=== PATIENT | female | born 1990 | race Caucasian/White ===

== ENCOUNTER 2016-04-12 21:19 | Inpatient (IN) | payer OTHER ==
[~2016-04-12] VITALS: Ht 172.7 cm; Wt 135.6 kg
[2016-04-12 22:13] LABS: ABSOLUTE BASOPHIL COUNT 0 /CUMM (0.0-0.2); ABSOLUTE EOSINOPHIL COUNT 0 /CUMM (0.0-0.7); ABSOLUTE GRANULOCYTE CT 8.8 /CUMM (1.4-6.5); ABSOLUTE LYMPH COUNT 2.9 /CUMM (1.2-3.4); ABSOLUTE MONOCYTE COUNT 0.9 /CUMM (0.10-0.60); BASOPHIL % 0.2 % (0.0-2.0); EOSINOPHIL % 0.3 % (0-5); GRANULOCYTE % 69.2 % (42.2-75.2); HEMATOCRIT 36.4 % (37-47); MEAN CORPUSCULAR HGB 28.1 PG (27.0-31.0); MEAN CORPUSCULAR HGB CONC 32.7 G/DL (33.0-37.0); MEAN PLATELET VOLUME 8.9 FL (7.4-10.4); PLATELET COUNT 306 /CUMM (130-400); RBC DISTRIBUTION WIDTH 14.1 % (11.5-14.5); RED BLOOD CELL CT 4.23 /CUMM (4.20-5.40); WHITE BLOOD CELL COUNT 12.7 /CUMM (4.8-10.8)
--- NOTE | 2016-04-12 22:26 | History & Physical ---
General Information and HPI MD Statement: I have seen and personally examined LUCY CARVER and documented this H&P. The patient is a 25 year old female at [39] weeks and [4] days gestation who presented with a chief complaint of [LOF]. Source of Information: patient Exam Limitations: no limitations History of Present Illness: 25yo, 39 4/7wks, c/o LOF since 8pm tonight, denies ctxs or vaginal bleeding, reports +FM.amnisure positive. care started at 8+ wks, initial BMI 41, elevated 1 hr GCT 171, 3hr GTT73/237/152/111, GBS positive. EFW 7lb2oz at 38wks 3days. 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 Home Who Do You Live With? spouse Primary Language: Irish Smoking Status: Never Smoked ETOH Use: denies use Illicit Drug Use: denies illicit drug use Living Will? unknown Review of Systems Review of Systems Constitutional: Reports: no symptoms. EENTM: Reports: no symptoms. Cardiovascular: Reports: no symptoms. Respiratory: Reports: no symptoms. GI: Reports: no symptoms. Genitourinary: Reports: see HPI. Musculoskeletal: Reports: no symptoms. Skin: Reports: no symptoms. Neurological/Psychological: Reports: no symptoms, unable to move lower ext, unable to move upper ext, weakness, other. Hematologic/Endocrine: Reports: no symptoms. Immunologic/Allergic: Reports: no symptoms. All Other Systems: Reviewed and Negative Date of LMP: 07/10/15 Post Menopausal: No Exam & Diagnostic Data Obstetric Exam Wgt Gained During : 58lb Pelvimetry: adequate Dilation (cm): 1 Effacement (%): 30 Station: -3 Membranes: SROM Fluid: clear Fundal Height (cm): 39 Multiple Gestation? No Contractions: occasional Infant #1 - FHR Baseline: 130 Category: 1 Estimated Weight: 7lb2oz Presentation: vertex Patient for Induction? No Physical Exam: VSS General : NAD abdomen: gravid, soft, nontender ext:DCT (-) Labs Blood Type & Rh: O positive Antibody Screen: negative Hct/Hgb & Platelets #1: 13.5/43%,[id number] Hct/Hgb & Platelets #2: 12/38.5%,[id number] Rubella: immune VDRL #1: negative VDRL #2: negative HbsAg: negative HIV #1: negative HIV #2 negative 1 Hr P 3 Hr P/237/152/111 Group B Strep: positive Initial Ultrasound: IUP at 8wks 2 days Anatomy Ultrasound: normal Ultrasound for EFW: 7lb2oz at 38wks 3 days Genetic Testing: normal Last 24 Hrs of Labs/Gopal: Laboratory Tests 04/12/16 2200: CBC w Diff NO MAN DIFF REQ, RBC 4.23, MCV 86.0, MCH 28.1, RDW 14.1, MPV 8.9, Gran % 69.2, Lymphocytes % 22.9, Monocytes % 7.4, Eosinophils % 0.3, Basophils % 0.2, Absolute Granulocytes 8.8 H, Absolute Lymphocytes 2.9, Absolute Monocytes 0.9 H, Absolute Eosinophils 0, Absolute Basophils 0, PUBS MCHC 32.7 L 04/12/165: Urine Color STRAW, Urine Clarity CLEAR, Urine pH 6.0, Ur Specific [place] <= 1.005, Urine Protein NEG, Urine Ketones NEG, Urine Nitrite NEG, Urine Bilirubin NEG, Urine Urobilinogen 0.2, Ur Leukocyte Esterase NEG, Ur Microscopic SEDIMENT EXAMINED, Urine RBC FEW H, Urine WBC RARE, Ur Epithelial Cells FEW, Urine Hemoglobin MOD H, Urine Glucose 250 H Assessment/Plan Assessment/Plan: 25yo, 39 4/7wks SROM 1. admit pt, admission labs 2. antibiotics for GBS prophylaxis 3. may consider IOL if no spontaneouse onset of labor 4. will monitor closely As Ranked By This Provider Problem List: 1. 2. SROM (spontaneous rupture of membranes) Core Measures/Miscellaneous Venous Thromboembolism VTE Risk Factors: / VTE Contraindications: No Contraindications VTE Prophylaxis Ordered Inpt: Early Ambulation VTE Diagnosis: No Beta Jose C Is Beta Jose C a Home Med? No Antibiotics Is Patient on Antibiotics? No Attending MD Review Statement Attending Statement Attending MD Statement: examined this patient, discussed with family, discussed w/nursing
--- NOTE | 2016-04-13 09:45 | PN- OBGYN ---
Surgical Brief Attending Note Brief Attending Note: Patient is status post SROM from yesterday evening. She was rested overnight. She is awake this morning. Patient is afebrile with normal vital signs. She's currently without any significant discomfort. She is aware of some very mild contractions. heart rate is category 1 Baseline 140s. Contractions are regular every 3- 6 minutes. Vaginal exam shows her cervix to be 3 cm 70% effaced posterior -2. Assessment SROM at term in a primipara with some irregular contractions plan is IV Pitocin We'll continue the antibiotic protocol for group B strep Joelle Jones ending dictation
--- NOTE | 2016-04-13 20:31 | Labor & Delivery Summary ---
Delivery Summary Vaginal Delivery: Vaginal: SPONTANEOUS VERTEX Episiotomy/Lacerations: Episiotomy/Lacerations: LACERATION Type: 1ST DEGREE Repair: 3 0 VICRYL Anesthesia: EPIDURAL / LOCAL Placenta: Placenta: spontanteous, normal, 3 vessel, NUCHAL CORD X 1 TRAILING MEMBRANES - RETAINED MEMBRANNE FRAGMENT - UTERINE CURETTAGE Anesthesia: EPIDURAL Cord PH Value: 7.30 Baby's Weight: FEMALE: 7# 7oz Apgars - 1 Min: 8 Apgars - 5 Min: 9 Additional Comments: Patient was admitted after SROM of clear fluid. SROM occurred on 04/12/2016 at 20:00. Due to positive maternal culture for group B beta strep patient was begun on the IV penicillin prophylaxis protocol. Patient rested overnight and then the following morning was started with IV Pitocin induction. Cervix was 2.5 cm's very posterior -70% effaced. As patient became more uncomfortable in the early afternoon she received an epidural. After placement of the epidural she was 5-6 cm's. Unfortunately after placement of the epidural she had overall poor epidural coverage on her left hand side that did not improve despite multiple epidural boluses. When patient was 8 cm there was a question as to whether to replace her epidural or just to go with some IV Stadol. Patient declined having another attempt of a second epidural to be placed and chose IV Stadol 1. Patient had increasing rectal pressure, reexamination showed her now to be anterior lip which she was easily able to push away so she became fully dilated at 19:01, on 04/13/2016. heart rate baseline remained 130s with mild to moderate variable decelerations on every 2-3 contractions. The variables would go to the 80-90 range with last less than 45 seconds with good recovery. Excellent variability. Once patient was noted to be fully her temperature was rechecked it was 100.7 so she was given 1 dose of IV acetaminophen. (Patient was continuing with the penicillin protocol for group B strep.). Patient was excellent was pushing and at 19:23 had a normal vaginal delivery of a live viable female infant. With delivery of the head there was evidence of meconium staining, which was not present during examinations in labor. Nuchal cord 1 was easily reduced. There was no difficulty with delivering the shoulders. Baby was vigorous at delivery cord was doubly clamped and cut and the baby was able to have skin to skin immediately with the mother. Cord pH was obtained which showed a normal value of 7.30. Following delivery the baby we had active management of third stage of labor with IV Pitocin. Placenta spontaneously delivered at 19:28 with evidence of trailing membranes. Following delivery of the placenta there was evidence of focal low segment uterine atony which responded to uterine massage cleaning the low segment out manually of blood clot IV Pitocin and IM Methergine. With manual removal of clots from the low segment there is suggestion of retained membrane fragments in the uterine fundal area so uterine curettage was performed. A Hamzah curette was easily passed of through the cervical opening into the uterine cavity patient tolerated the curettage quite easily a small 2 cm fragment of membrane was removed at that time. From that point onward we had good hemostasis from the uterus and cervix. Inspection of the perineum showed a right periurethral small laceration without any bleeding. There was a first-degree small laceration right at the introitus at 5:00 which required a single suture utilizing local anesthetic with bupivacaine. At completion the delivery of the baby and the placenta and repair of the perineum there was normal lochia noted Sponge needle and spent counseling were correct 2. Rh+, immune
[2016-04-14 09:14] LABS: ABSOLUTE BASOPHIL COUNT 0 /CUMM (0.0-0.2); ABSOLUTE EOSINOPHIL COUNT 0 /CUMM (0.0-0.7); ABSOLUTE GRANULOCYTE CT 12.3 /CUMM (1.4-6.5); ABSOLUTE MONOCYTE COUNT 1.1 /CUMM (0.10-0.60); BASOPHIL % 0.2 % (0.0-2.0); EOSINOPHIL % 0.1 % (0-5); GRANULOCYTE % 74.6 % (42.2-75.2); HEMATOCRIT 34.6 % (37-47); MEAN CORPUSCULAR HGB 28.1 PG (27.0-31.0); MEAN CORPUSCULAR HGB CONC 32.7 G/DL (33.0-37.0); MEAN CORPUSCULAR VOLUME 85.9 FL (81.0-99.0); PLATELET COUNT 304 /CUMM (130-400); RBC DISTRIBUTION WIDTH 14.4 % (11.5-14.5); RED BLOOD CELL CT 4.03 /CUMM (4.20-5.40); WHITE BLOOD CELL COUNT 16.5 /CUMM (4.8-10.8)
[2016-04-14] MEDS ORDERED: IBUPROFEN800 M1 PO (09:56)
--- NOTE | 2016-04-14 12:28 | PN- Post Delivery/GYN ---
Subjective Subjective: Sitting up in her bed, looking refreshed and healthy. Happy with her vaginal delivery Review of Systems: Currently negative for cardiac pulmonary GI complaints Objective Last 24 Hrs of Vital Signs/I&O MAXIMUM TEMPERATURE in labor 100.7, temp following delivery have all been in the range of 98.0-99.1. Pulse 80s respirations 16 blood pressure 122/78 pulse ox 99% room air Vital Signs Date Time Temp Pulse Resp B/P Pulse O2 O2 Flow FiO2 Ox Delivery Rate 04/13 2006 100.4 04/13 1906 100.7 Physical Exam General Appearance Alert, Oriented X3, Cooperative, No Acute Distress Skin No Rashes, No Breakdown Cardiovascular Regular Rate Lungs Normal Air Movement Abdomen Normal Bowel Sounds, Soft, No Tenderness, No Hepatospenomegaly, uterus is firm nontender midline 2 fingerbreadths below the umbilicus. Neurological Normal Gait, Normal Speech Extremities No Tenderness/Swelling Reproductive (FEMALE) Normal female genitalia, average lochia Current Medications: Current Medications Sig/Ritu Start time Last Medication Dose Route Stop Time Status Admin Acetaminophen 1,000 MG ONCE ONE 04/13 1914 DC 04/13 N/A 1 UNIT IV 04/13 1928 1907 Bupivacaine HCl 10 ML ONCE ONE 04/13 2014 DC 04/13 SC 04/13 2015 1930 Butorphanol Tartrate 2 MG ONCE ONE 04/13 1914 DC 04/13 IV 04/13 191 1840 Butorphanol Tartrate 1 MG Q4P PRN 04/13 1000 DC IV Butorphanol Tartrate 1 MG Q4P PRN 04/13 1000 DC IM Docusate Sodium 100 MG BID PRN 04/13 2014 PO Hydroxyzine HCl 100 MG AT BEDTIME NEED.. 04/13 2014 PO Hydroxyzine HCl 100 MG ONCE PRN 04/12 2330 DC 04/13 PO 0020 Ibuprofen 800 MG .STK-MED ONE 04/14 0257 DC PO 04/14 0258 Ibuprofen 800 MG Q6P PRN 04/13 2014 AC 04/14 PO 0307 Ketorolac 30 MG ONCE ONE 04/13 2014 DC 04/13 Tromethamine IV 04/13 2015 2031 Lactated Ringer's 1,000 ML Q8H 04/12 2200 DC 04/13 IV 1749 Magnesium Hydroxide 30 ML DAILY PRN 04/13 2014 DC PO 04/14 1001 Methylergonovine 0.2 MG STAT STA 04/13 2008 DC 04/13 Maleate IM 04/13 Morphine Sulfate 10 MG ONCE PRN 04/12 2330 DC IM Oxycodone/ 1 TAB Q3P PRN 04/13 2014 AC Acetaminophen PO Oxytocin 20 UNITS Q5H 04/13 2014 DC Lactated Ringer's 1,000 ML IV 04/14 0114 Oxytocin 30 UNITS PER PROTOCL 04/13 1000 DC 04/13 Lactated Ringer's 500 ML IV 1000 Penicillin G 2.5 MU Q4H 04/13 0200 DC 04/13 Potassium IV 1820 Dextrose/Water 100 ML Last 24 Hrs of Labs/Gopal: Laboratory Tests 04/14/16 0825: CBC w Diff NO MAN DIFF REQ, RBC 4.03 L, MCV 85.9, MCH 28.1, RDW 14.4, MPV 9.0, Gran % 74.6, Lymphocytes % 18.4 L, Monocytes % 6.7, Eosinophils % 0.1, Basophils % 0.2, Absolute Granulocytes 12.3 H, Absolute Lymphocytes 3.0, Absolute Monocytes 1.1 H, Absolute Eosinophils 0, Absolute Basophils 0, PUBS MCHC 32.7 L Microbiology 04/13 1710 URINE ROUT: Urine Culture - RES Assessment/Plan Assessment/Plan Stable day #1. Patient remains afebrile since delivery. She has no current complaints. ` Plan routine care Problem List: 1. BMI 45.0-49.9, adult 2. Term of female 3. Attending MD Review Statement Attending Statement Attending MD Statement: examined this patient, discussed with family, reviewed EMR data (avail), discussed with nursing Attending Assessment/Plan: Joelle Jones MD
--- NOTE | 2016-04-15 11:25 | PN- Post Delivery/GYN ---
Subjective Subjective: Ready for d/c; home no complaints Review of Systems: no Cardiac, Pulmonary GI complaints Objective Last 24 Hrs of Vital Signs/I&O T Max 97.8 VSS Physical Exam General Appearance Alert, Oriented X3, Cooperative, No Acute Distress Cardiovascular Regular Rate Lungs Normal Air Movement Abdomen Normal Bowel Sounds, Soft, No Tenderness, No Hepatospenomegaly, Uterus nontender 2 FB below umbilicus Neurological Normal Gait, Normal Speech Extremities No Tenderness/Swelling Reproductive (FEMALE) Normal female genitalia, Avge lochia Current Medications: Current Medications Sig/Ritu Start time Last Medication Dose Route Stop Time Status Admin Docusate Sodium 100 MG .STK-MED ONE 04/14 2328 DC PO 04/14 2329 Docusate Sodium 100 MG BID PRN 04/13 2014 AC PO Hydroxyzine HCl 100 MG AT BEDTIME NEED.. 04/13 2014 AC PO Ibuprofen 800 MG .STK-MED ONE 04/14 2328 DC PO 04/14 2329 Ibuprofen 800 MG .STK-MED ONE 04/14 1831 DC PO 04/14 1832 Ibuprofen 800 MG .STK-MED ONE 04/14 1228 DC PO 04/14 1229 Ibuprofen 800 MG Q6P PRN 04/13 2014 AC 04/15 PO 0429 Oxycodone/ 1 TAB Q3P PRN 04/13 2014 AC Acetaminophen PO Assessment/Plan Assessment/Plan stable PPD #2 discharge home Follow up in 2 and 6 wks Problem List: 1. SROM (spontaneous rupture of membranes) 2. BMI 45.0-49.9, adult 3. Term of female 4. Group B streptococcal carriage complicating Attending MD Review Statement Attending Statement Attending MD Statement: examined this patient, discussed with family, reviewed EMR data (avail), discussed with nursing Attending Assessment/Plan: Xiomara Jones MD
== END 2016-04-15 11:30 | DRG 775 ==
LOC: CBCO 21:19 → GNO 21:48
PROVIDERS: Obstetrics & Gynecology; ADMIT Obstetrics & Gynecology
PROC: 10E0XZZ Delivery of Products of Conception, External Approach (ICD-10-PCS; principal; 2016-04-13)
PROC: 0HQ9XZZ Repair Perineum Skin, External Approach (ICD-10-PCS; principal; 2016-04-13)
DX: O70.0 First degree perineal laceration during delivery (principal); O99.824 Streptococcus B carrier state complicating childbirth; Z37.0 Single live birth; Z3A.39 39 weeks gestation of pregnancy
CPT/HCPCS: GNOP; GNOS; 81001; 84112; 87086; 88307; J0131; J1885; J7120